=== PATIENT | female | born 1990 | race Caucasian/White ===

== ENCOUNTER 2017-11-08 17:45 | Emergency (ER) | payer OTHER, SELFPAY ==
[2017-11-08 17:53] VITALS: BP 134/85; PULSE 84; RESP 16; TEMP 37.1; O2SAT 96; BMI 41.5
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
[2017-11-08 18:50] VITALS: BP 122/74; PULSE 75; RESP 18; O2SAT 99
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
[2017-11-08 20:08] VITALS: BP 120/70; PULSE 72; RESP 18; O2SAT 99
== END 2017-11-08 20:09 | disposition home or self-care (01) ==
PROVIDERS: Emergency Provider Nurse Practitioner Family
DX: S16.1XXA Strain of muscle, fascia and tendon at neck level, initial encounter (principal); V49.40XA Driver injured in collision with unspecified motor vehicles in traffic accident, initial encounter
CPT/HCPCS: 72125; 99282; 99284